=== PATIENT | female | born 1940 | race Caucasian/White ===

== ENCOUNTER 2023-10-23 20:42 | Emergency (ER) | payer MEDICARE ==
[~2023-10-23] VITALS: Ht 154.9 cm; Wt 82.7 kg
[2023-10-23] MEDS ORDERED: normal saline 1000ML IV soln IVB ONE (20:55)
[2023-10-23] MEDS ORDERED: acetaminophen 1,000mg/100ml IV 100 ML IV ONE (20:55)
[2023-10-23 21:33] LABS: BASOPHILS # (AUTO) 0.1 X10'3 (0-0.2); BASOPHILS % (AUTO) 0.8 % (0-1); EOSINOPHILS # (AUTO) 0.1 X10'3 (0-0.9); EOSINOPHILS % (AUTO) 1.7 % (0-6); HEMATOCRIT 41.6 % (35.0-45.0); HEMOGLOBIN 13.8 g/dl (12.0-16.0); LYMPHOCYTES # (AUTO) 2.6 X10'3 (1.1-4.8); LYMPHOCYTES % (AUTO) 33.5 % (21-51); MEAN CORPUSCULAR HEMOGLOBIN 30.4 PG (27.0-31.0); MEAN CORPUSCULAR HGB CONC 33.1 g/dL (33.0-36.5); MEAN CORPUSCULAR VOLUME 91.8 FL (78-98); MEAN PLATELET VOLUME 8.9 FL (7.4-10.4); MONOCYTES # (AUTO) 0.7 X10'3 (0-0.9); MONOCYTES % (AUTO) 9.4 % (2-12); NEUTROPHILS # (AUTO) 4.2 X10'3 (1.8-7.7); NEUTROPHILS % (AUTO) 54.6 % (42-75); PLATELET COUNT 205 X10'3 (140-440); RED BLOOD COUNT 4.53 X10'6 (4.20-5.60); RED CELL DISTRIBUTION WIDTH 13.8 % (11.5-14.5); WHITE BLOOD COUNT 7.6 X10'3 (4.5-11.0)
[2023-10-23] MEDS ORDERED: APIX5TAB3 PO (21:39)
[2023-10-23] MEDS ORDERED: METF-436 PO (21:39)
[2023-10-23] MEDS ORDERED: ATOR40TA PO (21:39)
[2023-10-23 21:49] LABS: ALANINE AMINOTRANSFERASE 34 U/L (12-78); ALKALINE PHOSPHATASE 65 IU/L (46-116); ANION GAP 5 (8-16); ASPARTATE AMINO TRANSFERASE 24 U/L (10-37); BILIRUBIN,TOTAL 0.3 MG/DL (0.1-1.0); BLOOD UREA NITROGEN 17 MG/DL (7-18); BUN/CREATININE RATIO 22.1 (10.0-20.0); CHLORIDE 104 MMOL/L (99-107); CREATININE 0.77 MG/DL (0.40-0.90); GLUCOSE 102 MG/DL (70-104); POTASSIUM 4.2 MMOL/L (3.5-5.1); SODIUM 137 MMOL/L (135-145); TOTAL CARBON DIOXIDE 28.2 MMOL/L (24-32); TOTAL PROTEIN 5.9 G/DL (6.4-8.2); eCRCL 41 ML/MIN; eGFR 71 ML/MIN
[2023-10-23 22:45] LABS: BILIRUBIN,URINE NEGATIVE (Neg); CLARITY,URINE SLIGHTLY CLOUDY (Clear); COLOR,URINE STRAW (Yellow); GLUCOSE, URINE NEGATIVE (Neg); KETONES,URINE NEGATIVE (Neg); LEUKOCYTE ESTERASE ,URINE NEGATIVE (Neg); NITRITES, URINE NEGATIVE (Neg); OCCULT BLOOD,URINE TRACE-INTACT (Neg); PROTEIN,URINE NEGATIVE (Neg); UROBILINOGEN,URINE 0.2 E.U/dL (0.2-1.0)
[2023-10-23 22:50] LABS: UA COLLECTION TYPE CLN CATCH MIDSTREAM
[2023-10-23 22:51] LABS: RBC,URINE 0-2 /HPF (0-2); SQUAMOUS EPITHELIAL CELL,UR MODERATE /LPF (FEW); WBC,URINE 0-4 /HPF (0-4)
[2023-10-23 22:52] LABS: BACTERIA,URINE FEW /HPF (Neg)
[2023-10-23 23:22] VITALS: BP 133/71; PULSE 65; RESP 12; TEMP 98.3; O2SAT 93
== END 2023-10-23 23:19 | disposition home or self-care (01) ==
LOC: ER 20:43
DX: R51.9 Headache, unspecified (principal); R20.0 Anesthesia of skin; I48.91 Unspecified atrial fibrillation; E11.9 Type 2 diabetes mellitus without complications; Z72.89 Other problems related to lifestyle; Z86.73 Personal history of transient ischemic attack (TIA), and cerebral infarction without residual deficits; Z95.5 Presence of coronary angioplasty implant and graft
CPT/HCPCS: 36415; 70450; 80053; 81001; 82948; 85025; 96374; 99285; J0131; J7030; 96365